=== PATIENT | female | born 1970 | race Caucasian/White ===

== ENCOUNTER 2017-09-30 09:54 | Emergency (ER) | payer OTHER ==
--- OUTSIDE RECORDS SUMMARY | 2017-09-30 10:20 | XMS REPORT ---
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 Granulocyte % 55.5 % 38-83 Lymphocyte % 34.7 % 25-47 Monocyte % 8.4 % 1-9 Eosinophil % 0.9 % 0-6 Basophil % 0.5 % 0-2 Nucleated Red Blood Cells % 0.1 Protein Electrophoresis 04/05/2016 Total Protein(Pep) 7.3 g/dL 6.3 - 7.9 Albumin 3.6 g/dL 3.4-4.7 Alpha-1 Globulin 0.3 g/dL 0.1-0.3 Alpha-2 Globulin 1.1 g/dL 0.6-1.0 Beta Globulin 0.9 g/dL 0.7-1.2 Gamma Globulin 1.4 g/dL 0.6-1.6 Albumin/Globulin Ratio 0.96 M [place] 1.2 g/dL Impression See Comment 36 Comp Metabolic Panel 04/05/2016 Sodium 135 mmol/L 133-145 Potassium 3.8 mmol/L 3.5-5.0 Chloride 101 mmol/L 101-111 Co2 Carbon Dioxide 29 mmol/L 22-32 Anion Gap 5 mmol/L 2-11 Glucose 92 mg/dL 70-100 Blood Urea Nitrogen 15 mg/dL 6-24 Creatinine 0.82 mg/dL 0.51-0.95 BUN/Creatinine Ratio 18.3 8-20 Calcium 9.5 mg/dL 8.6-10.3 Total Protein 7.3 g/dL 6.4-8.9 Albumin 4.3 g/dL 3.2-5.2 Globulin 3.0 g/dL 2-4 Albumin/Globulin Ratio 1.4 1-3 Total Bilirubin 0.50 mg/dL 0.2-1.0 Alkaline Phosphatase 36 U/L 34-104 Alt 9 U/L 7-52 Ast 13 U/L 13-39 Egfr Non- 75.4 >60 Egfr 97.0 >60 37 Immunoglobulins Serum Quant 04/05/2016 Immunoglobulin G 1390 mg/dL 767 - 1590 38 Immunoglobulin M 29 mg/dL 37 - 286 Immunoglobulin A 33 mg/dL 61 - 356 [place]/Lambda Free Light Chains 04/05/2016 [place] Free [place] Chain 2.84 mg/dL 39 Ser Lambda Free Light Chain 0.8210 mg/dL 40 [place]/Lambda Free [place] Chain 3.46 41 Laboratory test 02/13/2016 Clotest SEE RESULT BELOW 42 finding Laboratory test 02/13/2016 Surgical Interface SEE RESULT BELOW 43 finding Order CBC Auto Diff 01/10/2016 White Blood Count 5.3 10^3/uL 3.5-10.8 Red Blood Count 4.42 10^6/uL 4.0-5.4 Hemoglobin 13.6 g/dL 12.0-16.0 Hematocrit 41 % 35-47 Mean Corpuscular Volume 93 fL 80-97 Mean Corpuscular Hemoglobin 31 pg 27-31 Mean Corpuscular HGB Conc 33 g/dL 31-36 Red Cell Distribution Width 13 % 10.5-15 Platelet Count 307 10^3/uL 150-450 Mean Platelet Volume 8 um3 7.4-10.4 Abs Neutrophils 2.4 10^3/uL 1.5-7.7 Abs Lymphocytes 2.3 10^3/uL 1.0-4.8 Abs Monocytes 0.5 10^3/uL 0-0.8 Abs Eosinophils 0.1 10^3/uL 0-0.6 Abs Basophils 0 10^3/uL 0-0.2 Abs Nucleated RBC 0 10^3/uL Granulocyte % 46.1 % 38-83 Lymphocyte % 43.2 % 25-47 Monocyte % 8.8 % 1-9 Eosinophil % 1.5 % 0-6 Basophil % 0.4 % 0-2 Nucleated Red Blood Cells % 0 [place]/Lambda Free [place] Chains 01/10/2016 [place] Free [place] Chain 3.04 mg/dL 44 Ser Lambda Free Light Chain 0.6710 mg/dL 45 [place]/Lambda Free Light Chain 4.53 46 Protein Electrophoresis 01/10/2016 Total Protein(Pep) 6.8 g/dL 6.3 - 7.9 Albumin 3.6 g/dL 3.4-4.7 Alpha-1 Globulin 0.2 g/dL 0.1-0.3 Alpha-2 Globulin 0.9 g/dL 0.6-1.0 Beta Globulin 0.7 g/dL 0.7-1.2 Gamma Globulin 1.5 g/dL 0.6-1.6 Albumin/Globulin Ratio 1.11 M [place] 1.3 g/dL Impression See Comment 47 Laboratory test finding 12/12/2015 Vitamin B-12 398 pg/mL 230-1050 Ebv Acute Infection 12/12/2015 Ebv Ab Vca, IgM <36.0 U/mL 0.0-35.9 48 , 49 Antibodies Profile Ebv Early Antigen Ab, IgG <9.0 U/mL 0.0-8.9 48, 50 Ebv Ab Vca, IgG 77.1 U/mL High 0.0-17.9 48, 51 Ebv Nuclear Antigen Ab, IgG 506.0 U/mL High 0.0-17.9 48, 52 Interpretation: See Comment: 48, 53 Lead Standard Profile, Blood 12/12/2015 Lead, Blood (Adult) 2 g/dL 0- 19 48, 54 Protoporphyrin (Fep) 22 g/dL 0-100 48 Zinc Protoporphyrin 24 g/dL 0-100 48, 55 CBC Electronic (Fma) 12/12/2015 WBC 8.8 3.6-9.6 RBC 4.61 3.90-5.70 Hemoglobin (Fma/CMC/CTX) 14.5 g/dL 12.1 - 17.2 Hematocrit (Fma/CMC/CTX) 43.3 % 36.1 - 50.3 Platelets 260 10^3/ul 150-400 Lymph% 15.2 % Low 17.0-48.0 Mixed% 2.3 Neutrophils % 82.5 Mean Corpuscular Vol 94 82.2-97.4 Mean Corpuscular Hemoglobin 31.6 27.6-33.3 Mean Corpuscular Hemo Concen 33.6 32.0-36.0 RDW 13.2 11.6-13.7 Mean Platelet Volume 7.3 5.5-11.0 Laboratory test finding 12/12/2015 Monospot (Fma/Centrex) negative Laboratory test finding 12/11/2015 Quickstrep negative Negative Throat - Beta Strep Fma negative@48hrs Comp Metabolic Panel 10/10/2015 Sodium 134 mmol/L 133-145 Potassium 3.9 mmol/L 3.5-5.0 Chloride 104 mmol/L 101-111 Co2 Carbon Dioxide 26 mmol/L 22-32 Anion Gap 4 mmol/L 2-11 Glucose 90 mg/dL 70-100 Blood Urea Nitrogen 12 mg/dL 6-24 Creatinine 0.89 mg/dL 0.51-0.95 BUN/Creatinine Ratio 13.5 8-20 Calcium 9.0 mg/dL 8.6-10.3 Total Protein 7.0 g/dL 6.4-8.9 Albumin 4.1 g/dL 3.2-5.2 Globulin 2.9 g/dL 2-4 Albumin/Globulin Ratio 1.4 1-3 Total Bilirubin 0.50 mg/dL 0.2-1.0 Alkaline Phosphatase 31 U/L Low 34-104 Alt 8 U/L 7-52 Ast 12 U/L Low 13-39 Egfr Non- 68.6 >60 Egfr 88.2 >60 56 Protein Electrophoresis 10/10/2015 Total Protein(Pep) 7.0 g/dL 6.3 - 7.9 Albumin 3.4 g/dL 3.4-4.7 Alpha-1 Globulin 0.2 g/dL 0.1-0.3 Alpha-2 Globulin 1.0 g/dL 0.6-1.0 Beta Globulin 0.8 g/dL 0.7-1.2 Gamma Globulin 1.6 g/dL 0.6-1.6 Albumin/Globulin Ratio 0.94 M Morris 1.3 g/dL Impression See Comment 57 Laboratory test finding 10/10/2015 C Reactive Protein < 1.00 mg/L &lt ; 5.00 58 LDH 100 U/L Low 140-271 CBC Auto Diff 10/10/2015 White Blood Count 5.1 10^3/uL 3.5-10.8 Red Blood Count 4.49 10^6/uL 4.0-5.4 Hemoglobin 14.3 g/dL 12.0-16.0 Hematocrit 42 % 35-47 Mean Corpuscular Volume 94 fL 80-97 Mean Corpuscular Hemoglobin 32 pg High 27-31 Mean Corpuscular HGB Conc 34 g/dL 31-36 Red Cell Distribution Width 14 % 10.5-15 Platelet Count 216 10^3/uL 150-450 Mean Platelet Volume 8 um3 7.4-10.4 Abs Neutrophils 2.6 10^3/uL 1.5-7.7 Abs Lymphocytes 1.8 10^3/uL 1.0-4.8 Abs Monocytes 0.4 10^3/uL 0-0.8 Abs Eosinophils 0.2 10^3/uL 0-0.6 Abs Basophils 0 10^3/uL 0-0.2 Abs Nucleated RBC 0 10^3/uL Granulocyte % 51.9 % 38-83 Lymphocyte % 35.3 % 25-47 Monocyte % 8.9 % 1-9 Eosinophil % 3.0 % 0-6 Basophil % 0.9 % 0-2 Nucleated Red Blood Cells % 0 [place]/Lambda Free Light Chains 10/10/2015 [place] Free [place] Chain 2.44 mg/dL 59 Ser [place] Free Light Chain 1.39 mg/dL 60 [place]/Lambda Free Light Chain 1.76 61 Laboratory test finding 10/10/2015 Erythrocyte Sed Rate 10 mm/Hr 0-14 Urinalysis Profile 09/22/2015 Urine Color Colorless Urine Appearance Clear Urine Specific [place] 1.002 Low 1.010-1.030 Urine pH 6.0 5-9 Urine Urobilinogen Negative Negative Urine Ketones Negative Negative Urine Protein Negative Negative Urine Leukocytes Negative Negative Urine Blood Negative Negative Urine Nitrite Negative Negative Urine Bilirubin Negative Negative Urine Glucose Negative Negative Laboratory test finding 09/22/2015 Urine Random Total < 6 mg/dL Protein CBC Auto Diff 09/15/2015 White Blood Count 6.9 10^3/uL 4.8-10.8 Red Blood Count 4.09 10^6/uL 4.0-5.4 Hemoglobin 12.8 g/dL 12.0-16.0 Hematocrit 38 % 35-47 Mean Corpuscular Volume 93 fL 80-97 Mean Corpuscular Hemoglobin 31 pg 27-31 Mean Corpuscular HGB Conc 34 g/dL 31-36 Red Cell Distribution Width 14 % 10.5-15 Platelet Count 215 10^3/uL 150-450 Mean Platelet Volume 9 um3 7.4-10.4 Abs Neutrophils 3.7 10^3/uL 1.5-7.7 Abs Lymphocytes 2.4 10^3/uL 1.0-4.8 Abs Monocytes 0.7 10^3/uL 0-0.8 Abs Eosinophils 0.1 10^3/uL 0-0.6 Abs Basophils 0 10^3/uL 0-0.2 Abs Nucleated RBC 0 10^3/uL Granulocyte % 54.2 % 38-83 Lymphocyte % 34.8 % 25-47 Monocyte % 9.5 % High 1-9 Eosinophil % 0.9 % 0-6 Basophil % 0.6 % 0-2 Nucleated Red Blood Cells % 0.1 Comp Metabolic Panel 09/15/2015 Sodium 133 mmol/L 133-145 Potassium 3.7 mmol/L 3.5-5.0 Chloride 102 mmol/L 101-111 Co2 Carbon Dioxide 26 mmol/L 22-32 Anion Gap 5 mmol/L 2-11 Glucose 88 mg/dL 70-100 Blood Urea Nitrogen 13 mg/dL 6-24 Creatinine 0.79 mg/dL 0.51-0.95 BUN/Creatinine Ratio 16.5 8-20 Calcium 9.4 mg/dL 8.6-10.3 Total Protein 7.0 g/dL 6.4-8.9 Albumin 4.1 g/dL 3.2-5.2 Globulin 2.9 g/dL 2-4 Albumin/Globulin Ratio 1.4 1-3 Total Bilirubin 0.40 mg/dL 0.2-1.0 Alkaline Phosphatase 30 U/L Low 34-104 Alt 9 U/L 7-52 Ast 11 U/L Low 13-39 Egfr Non- 78.7 >60 Egfr 101.2 >60 62 Protein Electrophoresis 09/15/2015 Total Protein(Pep) 7.0 g/dL 6.3 - 7.9 Albumin 3.5 g/dL 3.4-4.7 Alpha-1 Globulin 0.3 g/dL 0.1-0.3 Alpha-2 Globulin 0.9 g/dL 0.6-1.0 Beta Globulin 0.8 g/dL 0.7-1.2 Gamma Globulin 1.6 g/dL 0.6-1.6 Albumin/Globulin Ratio 1.01 M Morris 1.3 g/dL Impression See Comment 63 CCP Abs Igg/Iga 08/04/2015 CCP Antibodies <1 units 0-19 64, 65 IgG/IgA Laboratory test 08/03/2015 TSH 2.39 mIU/L 0.50-6.00 finding Free T4 0.89 ng/dL 0.75-1.54 Complete Blood Count 08/03/2015 WBC 5.2 x10^3/UL 3.6-9.6 RBC 4.08 x10^6/UL 3.90-5.70 HGB 12.8 g/dL 12.1-17.2 HCT 37 % 36-50 MCV 92.0 fL 82.2-97.4 MCH 31.4 pg 27.6-33.3 MCHC 34.2 g/dL 33.0-35.5 RDW 13.5 % 11.6-13.7 PLT 250 x10^3/UL 150-400 MPV 6.9 fL Low 7.4-10.4 Gran # 2.4 x10^3/UL 1.5-7.2 Lymph# 2.5 x10^3/UL 0.7-4.9 [place]# 0.3 x10^3/UL 0.1-0.9 Gran % 44.7 % 42.2-75.2 Lymph % 49.1 % 20.5-51.1 [place]% 6.2 % 1.7-9.3 Hepatic 08/03/2015 Total Protein 6.6 g/dL 6.4-8.3 Albumin 4.1 g/dL 3.8-5.5 Globulin 2.5 g/dL 2.0-4.8 A/G Ratio 1.6 CALC 0.6-2.3 Alk. Phosphatase 34 U/L 30-110 Alt (SGPT) 8 U/L 7-35 Ast (Sgot) 10 U/L 5-34 Total Bilirubin 0.3 mg/dL 0.2-1.3 Direct Bilirubn 0.1 mg/dL 0.0-0.6 Indirect Bilirubin 0.20 mg/dL 0.10-1.00 Laboratory test finding 08/03/2015 Vitamin B-12 226 pg/mL Low 230-1050 Folate Level 8.44 ng/mL 3.00-16.00 Basic Metabolic Profile 06/29/2015 Sodium 135 mEq/L 134-149 Potassium 4.0 mEq/L 3.6-5.5 Chloride 102 mEq/L 94-112 Carbon Dioxide 24 mEq/L 21-32 Glucose 100 mg/dL 70-105 BUN 10 mg/dL 6-26 Creatinine 0.8 mg/dL 0.6-1.4 BUN/Creat Ratio 12.5 CALC 8.0-36.0 Calcium 9.4 mg/dL 8.6-10.2 GFR Non- >60 ml/min/1.73m^ >=60 GFR >60 ml/min/1.73m^ >=60 Laboratory test finding 06/29/2015 Magnesium, Serum 1.9 mEq/L 1.2-2.1 Protein Electrophoresis 03/13/2015 Total Protein(Pep) 6.9 g/dL 6.3 - 7.9 Albumin 3.4 g/dL 3.4-4.7 Alpha-1 Globulin 0.3 g/dL 0.1-0.3 Alpha-2 Globulin 1.0 g/dL 0.6-1.0 Beta Globulin 0.8 g/dL 0.7-1.2 Gamma Globulin 1.4 g/dL 0.6-1.6 Albumin/Globulin Ratio 0.94 M [place] 1.2 g/dL Impression See Comment 66 CBC Auto Diff 03/13/2015 White Blood Count 6.4 10^3/uL 4.8-10.8 Red Blood Count 4.56 10^6/uL 4.0-5.4 Hemoglobin 14.7 g/dL 12.0-16.0 Hematocrit 43 % 35-47 Mean Corpuscular Volume 94 fL 80-97 Mean Corpuscular Hemoglobin 32 pg High 27-31 Mean Corpuscular HGB Conc 35 g/dL 31-36 Red Cell Distribution Width 13 % 10.5-15 Platelet Count 219 10^3/uL 150-450 Mean Platelet Volume 9 um3 7.4-10.4 Abs Neutrophils 3.0 10^3/uL 1.5-7.7 Abs Lymphocytes 2.3 10^3/uL 1.0-4.8 Abs Monocytes 0.7 10^3/uL 0-0.8 Abs Eosinophils 0.3 10^3/uL 0-0.6 Abs Basophils 0 10^3/uL 0-0.2 Abs Nucleated RBC 0 10^3/uL Granulocyte % 47.6 % 38-83 Lymphocyte % 36.0 % 25-47 Monocyte % 11.2 % High 1-9 Eosinophil % 4.5 % 0-6 Basophil % 0.7 % 0-2 Nucleated Red Blood Cells % 0.1 Comp Metabolic Panel 03/13/2015 Sodium 131 mmol/L Low 133-145 Potassium 4.0 mmol/L 3.5-5.0 Chloride 102 mmol/L 101-111 Co2 Carbon Dioxide 28 mmol/L 22-32 Anion Gap 1 mmol/L Low 2-11 Glucose 108 mg/dL High 70-100 Blood Urea Nitrogen 11 mg/dL 6-24 Creatinine 0.86 mg/dL 0.51-0.95 BUN/Creatinine Ratio 12.8 8-20 Calcium 9.1 mg/dL 8.6-10.3 Total Protein 6.6 g/dL 6.4-8.9 Albumin 4.0 g/dL 3.2-5.2 Globulin 2.6 g/dL 2-4 Albumin/Globulin Ratio 1.5 1-3 Total Bilirubin 0.40 mg/dL 0.2-1.0 Alkaline Phosphatase 34 U/L 34-104 Alt 10 U/L 7-52 Ast 13 U/L 13-39 Egfr Non- 71.7 >60 Egfr 92.2 >60 67 Immunoglobulins Serum Quant 03/13/2015 Immunoglobulin G 1360 mg/dL 767 - 1590 68 Immunoglobulin M 24 mg/dL 37 - 286 Immunoglobulin A 32 mg/dL 61 - 356 Lyme Western Blot 02/16/2015 Lyme Disease IgG Ab WB Negative Negative Lyme Disease IgG Bands Present No bands detecte <SEE NOTE> kDa 69 Lyme Disease IgM Ab WB Negative Negative Lyme Disease IgM Bands Present No bands detecte <SEE NOTE> kDa 70 Lyme Disease Interpretation See Comment 71 Laboratory test finding 02/16/2015 Quickstrep NEG Negative Throat - Beta Strep Fma neg@48hrs [place] Hep-2 02/01/2015 [place] Pattern Negative Negative 72 [place] Reviewed By MD Miladis Moore 73 Laboratory test 02/01/2015 Babesiosis Evaluation <1:64 titer <1:64 74 finding E.Chaffeensis AB 02/01/2015 Ehrlichia chaffeensis <1:64 (Igg,M) Ab IgG Ehrlichia chaffeensis Ab IgM <1:20 Ehrlichia chaffeensis Interp See Comment 75 [place] Panel--LD (CMC) 02/01/2015 Anti Double Stranded Dna Negative Negative Rheumatoid Factor <15 IU/mL <15 76 [place] (Anti-Nuclear AB) Screen Reflexed to FA Negative U1 SHOE LACER IgG Autoabs 0.3 U 77 Hla B27 Ag 02/01/2015 Hla B27 Negative 78 Hla B27 Interp See Comment 79 Sjogren's Antibodies 02/01/2015 SS-A/Ro Antibody <0.2 U 80 SS-B/La Antibody <0.2 U 81 Laboratory test finding 02/01/2015 Cyclic Citrullinated Pept <15.6 U 82 IgG Laboratory test finding 02/01/2015 CRP High Sensitivity 0.59 mg/L 83 CBC Auto Diff 02/01/2015 White Blood Count 8.2 10^3/uL 4.8-10.8 Red Blood Count 4.52 10^6/uL 4.0-5.4 Hemoglobin 14.7 g/dL 12.0-16.0 Hematocrit 43 % 35-47 Mean Corpuscular Volume 95 fL 80-97 Mean Corpuscular Hemoglobin 33 pg High 27-31 Mean Corpuscular HGB Conc 35 g/dL 31-36 Red Cell Distribution Width 14 % 10.5-15 Platelet Count 235 10^3/uL 150-450 Mean Platelet Volume 9 um3 7.4-10.4 Abs Neutrophils 4.7 10^3/uL 1.5-7.7 Abs Lymphocytes 2.5 10^3/uL 1.0-4.8 Abs Monocytes 0.6 10^3/uL 0-0.8 Abs Eosinophils 0.3 10^3/uL 0-0.6 Abs Basophils 0.1 10^3/uL 0-0.2 Abs Nucleated RBC 0 10^3/uL Granulocyte % 57.8 % 38-83 Lymphocyte % 30.3 % 25-47 Monocyte % 7.9 % 1-9 Eosinophil % 3.1 % 0-6 Basophil % 0.9 % 0-2 Nucleated Red Blood Cells % 0 Laboratory test finding 02/01/2015 Erythrocyte Sed Rate 10 mm/Hr 0-14 Lyme Disease Serology Negative Negative 84 Reference Lab Test See Comment 85 CBC Auto Diff 12/13/2014 White Blood Count 6.8 10^3/uL 4.8-10.8 Red Blood Count 4.58 10^6/uL 4.0-5.4 Hemoglobin 15.0 g/dL 12.0-16.0 Hematocrit 44 % 35-47 Mean Corpuscular Volume 96 fL 80-97 Mean Corpuscular Hemoglobin 33 pg High 27-31 Mean Corpuscular HGB Conc 34 g/dL 31-36 Red Cell Distribution Width 13 % 10.5-15 Platelet Count 229 10^3/uL 150-450 Mean Platelet Volume 9 um3 7.4-10.4 Abs Neutrophils 3.3 10^3/uL 1.5-7.7 Abs Lymphocytes 2.6 10^3/uL 1.0-4.8 Abs Monocytes 0.6 10^3/uL 0-0.8 Abs Eosinophils 0.3 10^3/uL 0-0.6 Abs Basophils 0.1 10^3/uL 0-0.2 Abs Nucleated RBC 0 10^3/uL Granulocyte % 48.0 % 38-83 Lymphocyte % 37.6 % 25-47 Monocyte % 9.4 % High 1-9 Eosinophil % 4.2 % 0-6 Basophil % 0.8 % 0-2 Nucleated Red Blood Cells % 0 Comp Metabolic Panel 12/13/2014 Sodium 135 mmol/L 133-145 Potassium 3.6 mmol/L 3.5-5.0 Chloride 104 mmol/L 101-111 Co2 Carbon Dioxide 27 mmol/L 22-32 Anion Gap 4 mmol/L 2-11 Glucose 89 mg/dL 70-100 Blood Urea Nitrogen 10 mg/dL 6-24 Creatinine 0.77 mg/dL 0.51-0.95 BUN/Creatinine Ratio 13.0 8-20 Calcium 9.1 mg/dL 8.6-10.3 Total Protein 6.9 g/dL 6.4-8.9 Albumin 4.2 g/dL 3.2-5.2 Globulin 2.7 g/dL 2-4 Albumin/Globulin Ratio 1.6 1-3 Total Bilirubin 0.60 mg/dL 0.2-1.0 Alkaline Phosphatase 36 U/L 34-104 Alt 11 U/L 7-52 Ast 11 U/L Low 13-39 Egfr Non- 81.4 >60 Egfr 104.7 >60 86 Immunoglobulins Serum Quant 12/13/2014 Immunoglobulin G 1380 mg/dL 767 - 1590 87 Immunoglobulin M 26 mg/dL 37 - 286 Immunoglobulin A 34 mg/dL 61 - 356 [place]/Lambda Free Light Chains 12/13/2014 [place] Free Light Chain 1.25 mg/dL 88 Ser Lambda Free Light Chain 1.14 mg/dL 89 [place]/Lambda Free Light Chain 1.10 90 Protein Electrophoresis 12/13/2014 Total Protein(Pep) 7.0 g/dL 6.3 - 7.9 Albumin 3.5 g/dL 3.4-4.7 Alpha-1 Globulin 0.2 g/dL 0.1-0.3 Alpha-2 Globulin 1.0 g/dL 0.6-1.0 Beta Globulin 0.8 g/dL 0.7-1.2 Gamma Globulin 1.5 g/dL 0.6-1.6 Albumin/Globulin Ratio 1.01 M [place] 1.2 g/dL Impression See Comment 91 Thyroid Autoantibodies 10/17/2014 Thyroid Peroxidase 8.74 IU/mL <9 92 , 93 Profile Antibodies Thyroglobulin Tumor 10/17/2014 Thyroglobulin <1.8 IU/mL <4.0 92 Marker Antibody Thyroglobulin Tumor Marker 14 ng/mL 92, 94 Thyroglobulin Interpretation See Comment 92, 95 Laboratory test finding 10/17/2014 Vitamin D25 39 30-100 TSH 1.55 mIU/L 0.50-6.00 Ua - Non Micro (a) 10/17/2014 Appearance clear Color yellow Glucose, Urine (Fma/CMC/CTX) neg Bilirubin neg Ketones trace SP Grav 1.020 Blood neg PH 7.0 Protein neg Urobil 0.2 Nitrite neg Leukocytes (a/[facility]/Centrex) neg Comprehensive Metabolic Prof 10/10/2014 Sodium 137 mEq/L 134-149 Potassium 4.2 mEq/L 3.6-5.5 Chloride 103 mEq/L 94-112 Carbon Dioxide 27 mEq/L 21-32 Glucose 103 mg/dL 70-105 BUN 12 mg/dL 6-26 Creatinine 0.9 mg/dL 0.6-1.4 BUN/Creat Ratio 13.3 CALC 8.0-36.0 Calcium 9.6 mg/dL 8.6-10.2 Total Protein 7.2 g/dL 6.4-8.3 Albumin 4.2 g/dL 3.8-5.5 Globulin 3.0 g/dL 2.0-4.8 A/G Ratio 1.4 CALC 0.6-2.3 Alk. Phosphatase 36 U/L 30-110 Alt (SGPT) 15 U/L 7-35 Ast (Sgot) 16 U/L 5-34 Total Bilirubin 0.6 mg/dL 0.2-1.3 Lipid Profile 10/10/2014 Cholesterol 247 mg/dL High 120-200 Triglycerides 123 mg/dL 30-200 HDL Cholesterol 55 mg/dL 30-85 LDL (Calculated) 167 CALC High 0-129 VLDL Cholesterol 25 mg/dL 0-50 HDL Risk Factor 4.5 CALC High 0.0-4.4 Complete Blood Count 10/10/2014 WBC 6.8 x10^3/UL 3.6-9.6 RBC 4.60 x10^6/UL 3.90-5.70 HGB 15.3 g/dL 12.1-17.2 HCT 45 % 36-50 MCV 97.0 fL 82.2-97.4 MCH 33.2 pg 27.6-33.3 MCHC 34.0 g/dL 33.0-35.5 RDW 11.9 % 11.6-13.7 PLT 268 x10^3/UL 150-400 MPV 7.5 fL 7.4-10.4 Gran # 4.2 x10^3/UL 1.5-7.2 Lymph# 2.4 x10^3/UL 0.7-4.9 [place]# 0.2 x10^3/UL 0.1-0.9 Gran % 60.3 % 42.2-75.2 Lymph % 35.7 % 20.5-51.1 [place]% 4.0 % 1.7-9.3 Urinalysis Profile 10/02/2014 Urine Color Yellow Urine Appearance Clear Urine Specific [place] 1.010 1.010-1.030 Urine pH 6.0 5-9 Urine Urobilinogen Negative Negative Urine Ketones Negative Negative Urine Protein Negative Negative Urine Leukocytes Negative Negative Urine Blood Negative Negative Urine Nitrite Negative Negative Urine Bilirubin Negative Negative Urine Glucose Negative Negative CBC Auto Diff 09/27/2014 White Blood Count 8.2 10^3/uL 4.8-10.8 Red Blood Count 4.70 10^6/uL 4.0-5.4 Hemoglobin 15.4 g/dL 12.0-16.0 Hematocrit 46 % 35-47 Mean Corpuscular Volume 97 fL 80-97 Mean Corpuscular Hemoglobin 33 pg High 27-31 Mean Corpuscular HGB Conc 34 g/dL 31-36 Red Cell Distribution Width 13 % 10.5-15 Platelet Count 277 10^3/uL 150-450 Mean Platelet Volume 8 um3 7.4-10.4 Abs Neutrophils 4.9 10^3/uL 1.5-7.7 Abs Lymphocytes 2.4 10^3/uL 1.0-4.8 Abs Monocytes 0.6 10^3/uL 0-0.8 Abs Eosinophils 0.3 10^3/uL 0-0.6 Abs Basophils 0.1 10^3/uL 0-0.2 Abs Nucleated RBC 0 10^3/uL Granulocyte % 59.3 % 38-83 Lymphocyte % 29.2 % 25-47 Monocyte % 7.6 % 1-9 Eosinophil % 3.3 % 0-6 Basophil % 0.6 % 0-2 Nucleated Red Blood Cells % 0 Comp Metabolic Panel 09/27/2014 Sodium 135 mmol/L 133-145 Potassium 3.6 mmol/L 3.5-5.0 Chloride 103 mmol/L 101-111 Co2 Carbon Dioxide 26 mmol/L 22-32 Anion Gap 6 mmol/L 2-11 Glucose 90 mg/dL 70-100 Blood Urea Nitrogen 8 mg/dL 6-24 Creatinine 0.81 mg/dL 0.51-0.95 BUN/Creatinine Ratio 9.9 8-20 Calcium 9.1 mg/dL 8.6-10.3 Total Protein 7.4 g/dL 6.4-8.9 Albumin 4.4 g/dL 3.2-5.2 Globulin 3.0 g/dL 2-4 Albumin/Globulin Ratio 1.5 1-3 Total Bilirubin 0.40 mg/dL 0.2-1.0 Alkaline Phosphatase 38 U/L 34-104 Alt 12 U/L 7-52 Ast 13 U/L 13-39 Egfr Non- 76.8 >60 Egfr 98.8 >60 96 Laboratory test finding 09/27/2014 Beta 2 Microglobulin 2.00 g/mL 97 Immunoglobulins Serum 09/27/2014 Immunoglobulin G 1380 mg/dL 767 - 1590 98 Quant Immunoglobulin M 34 mg/dL 37 - 286 Immunoglobulin A 34 mg/dL 61 - 356 Protein Electrophoresis 09/27/2014 Total Protein(Pep) 7.5 g/dL 6.3 - 7.9 Albumin 4.0 g/dL 3.4-4.7 Alpha-1 Globulin 0.2 g/dL 0.1-0.3 Alpha-2 Globulin 0.9 g/dL 0.6-1.0 Beta Globulin 0.8 g/dL 0.7-1.2 Gamma Globulin 1.5 g/dL 0.6-1.6 Albumin/Globulin Ratio 1.16 M [place] 1.3 g/dL Impression See Comment 99 Immunofixation See Comment 100 1 REFERENCE VALUE 0.3300-1.94 2 REFERENCE VALUE 0.5700-2.63 3 REFERENCE VALUE 0.2600-1.65 Test Performed by: [place] [address] 4 M-spike in gamma fraction. Size of monoclonal protein not changed significantly since 02/19/2017. Test Performed by: [place] [address] 5 Because ethnic data is not always readily available, this report includes an eGFR for both -Americans and non- Americans. The National Kidney Disease Education Program (NKDEP) does not endorse the use of the MDRD equation for patients that are not between the ages of 18 and 70, are , have extremes of body size, muscle mass, or nutritional status, or are non- or non-. According to the National Kidney Foundation, irrespective of diagnosis, the stage of the disease is based on the level of kidney function: Stage Description GFR(mL/min/1.73 m(2)) 1 Kidney damage with normal or decreased GFR 90 2 Kidney damage with mild decrease in GFR 60-89 3 Moderate decrease in GFR 30-59 4 Severe decrease in GFR 15-29 5 Kidney failure <15 (or dialysis) 6 REFERENCE VALUE 0.3300-1.94 7 REFERENCE VALUE 0.5700-2.63 8 REFERENCE VALUE 0.2600-1.65 Test Performed by: [address] [id number] 9 Because ethnic data is not always readily available, this report includes an eGFR for both -Americans and non- Americans. The National Kidney Disease Education Program (NKDEP) does not endorse the use of the MDRD equation for patients that are not between the ages of 18 and 70, are , have extremes of body size, muscle mass, or nutritional status, or are non- or non-. According to the [employer], irrespective of diagnosis, the stage of the disease is based on the level of kidney function: Stage Description GFR(mL/min/1.73 m(2)) 1 Kidney damage with normal or decreased GFR 90 2 Kidney damage with mild decrease in GFR 60-89 3 Moderate decrease in GFR 30-59 4 Severe decrease in GFR 15-29 5 Kidney failure <15 (or dialysis) 10 M-spike in gamma fraction. Size of monoclonal protein not changed significantly since 11/26/2016. Test Performed by: [address] [address] 11 M-spike in gamma fraction. Size of monoclonal protein not changed significantly since 07/10/2016. Test Performed by: [address] [id number] [employer]ician: Isidro Eli II, M.D., Ph.D. 12 Because ethnic data is not always readily available, this report includes an eGFR for both -Americans and non- Americans. The National Kidney Disease Education Program (NKDEP) does not endorse the use of the MDRD equation for patients that are not between the ages of 18 and 70, are , have extremes of body size, muscle mass, or nutritional status, or are non- or non-. According to the National [employer], irrespective of diagnosis, the stage of the disease is based on the level of kidney function: Stage Description GFR(mL/min/1.73 m(2)) 1 Kidney damage with normal or decreased GFR 90 2 Kidney damage with mild decrease in GFR 60-89 3 Moderate decrease in GFR 30-59 4 Severe decrease in GFR 15-29 5 Kidney failure <15 (or dialysis) 13 REFERENCE VALUE 0.3300-1.94 14 REFERENCE VALUE 0.5700-2.63 15 REFERENCE VALUE 0.2600-1.65 Test Performed by: [place] [address] [employer]ician: Isidro Eli II, M.D., Ph.D. 16 Because ethnic data is not always readily available, this report includes an eGFR for both -Americans and non- Americans. The National Kidney Disease Education Program (NKDEP) does not endorse the use of the MDRD equation for patients that are not between the ages of 18 and 70, are , have extremes of body size, muscle mass, or nutritional status, or are non- or non-. According to the National [employer], irrespective of diagnosis, the stage of the disease is based on the level of kidney function: Stage Description GFR(mL/min/1.73 m(2)) 1 Kidney damage with normal or decreased GFR 90 2 Kidney damage with mild decrease in GFR 60-89 3 Moderate decrease in GFR 30-59 4 Severe decrease in GFR 15-29 5 Kidney failure <15 (or dialysis) 17 REFERENCE VALUE 0.3300-1.94 18 REFERENCE VALUE 0.5700-2.63 19 REFERENCE VALUE 0.2600-1.65 Test Performed by: [place] [address] [employer] Technician: Isidro Eli II, M.D., Ph.D. 20 M-spike in gamma fraction. Size of monoclonal protein not changed significantly since 04/05/2016 Test Performed by: [place] [address] [employer]ician: Isidro Eli II, M.D., Ph.D. 21 Presumptive Positive Presumptive positive results are unconfirmed. 22 Presumptive Positive Presumptive positive results are unconfirmed. 23 The urine specimen was tested at the listed cutoffs: Drug class test level (ng/mL) Amphetamines 500 Barbiturates 200 Benzodiazepine metabolites 200 Cocaine metabolites 150 Cannabinoids 50 Opiates 300 Pcp 25 Specimen was received without chain of custody. Results should be used for medical purposes only. 24 Reference Range and Interpretation: TnI (ng/mL) Interpretation Less Than 0.03 ng/mL Not supportive of diagnosis of SD 0.03 - 0.50 ng/mL Indeterminate: suggest serial studies if clinically indicated. Greater than 0.5 ng/mL Consistent with diagnosis of SD 25 Because ethnic data is not always readily available, this report includes an eGFR for both -Americans and non- Americans. The National Kidney Disease Education Program (NKDEP) does not endorse the use of the MDRD equation for patients that are not between the ages of 18 and 70, are , have extremes of body size, muscle mass, or nutritional status, or are non- or non-. According to the National Kidney Foundation, irrespective of diagnosis, the stage of the disease is based on the level of kidney function: Stage Description GFR(mL/min/1.73 m(2)) 1 Kidney damage with normal or decreased GFR 90 2 Kidney damage with mild decrease in GFR 60-89 3 Moderate decrease in GFR 30-59 4 Severe decrease in GFR 15-29 5 Kidney failure <15 (or dialysis) 26 Desirable <150 Borderline high 150-199 High 200-499 Very High >500 27 Desirable <200 Borderline high 200-239 High >239 28 Low <40 Desirable: 40-60 High: >60 29 Desirable: <100 mg/dL Near Optimal: 100-129 mg/dL Borderline High: 130-159 mg/dL High: 160-189 mg/dL Very High: >189 mg/dL 30 [facility] Severe Sepsis and Septic Shock Management Bundle Measure requires all lactic acids initially measuring >2.0 mmol/L be repeated. 31 Reference Range and Interpretation: TnI (ng/mL) Interpretation Less Than 0.03 ng/mL Not supportive of diagnosis of SD 0.03 - 0.50 ng/mL Indeterminate: suggest serial studies if clinically indicated. Greater than 0.5 ng/mL Consistent with diagnosis of SD 32 [facility] Severe Sepsis and Septic Shock Management Bundle Measure requires all lactic acids initially measuring >2.0 mmol/L be repeated. 33 Please note: The following may produce a false positive D Dimer test: - Rheumatoid factor greater than 60 IU/ml - Plasma hemoglobin greater than 0.05 gm/dl - Bilirubin greater than 50 mg/dl - Lipids greater than 1000 mg/dl - FDP greater than 20 ug/ml 34 Because ethnic data is not always readily available, this report includes an eGFR for both -Americans and non- Americans. The National Kidney Disease Education Program (NKDEP) does not endorse the use of the MDRD equation for patients that are not between the ages of 18 and 70, are , have extremes of body size, muscle mass, or nutritional status, or are non- or non-. According to the National Kidney Foundation, irrespective of diagnosis, the stage of the disease is based on the level of kidney function: Stage Description GFR(mL/min/1.73 m(2)) 1 Kidney damage with normal or decreased GFR 90 2 Kidney damage with mild decrease in GFR 60-89 3 Moderate decrease in GFR 30-59 4 Severe decrease in GFR 15-29 5 Kidney failure <15 (or dialysis) 35 Reference Range and Interpretation: TnI (ng/mL) Interpretation Less Than 0.03 ng/mL Not supportive of diagnosis of SD 0.03 - 0.50 ng/mL Indeterminate: suggest serial studies if clinically indicated. Greater than 0.5 ng/mL Consistent with diagnosis of SD 36 M-spike in gamma fraction. Size of monoclonal protein not changed significantly since 01/10/2016 Test Performed by: [address] [address] [employer] Technician: Isidro Eli II, M.D., Ph.D. 37 Because ethnic data is not always readily available, this report includes an eGFR for both -Americans and non- Americans. The National Kidney Disease Education Program (NKDEP) does not endorse the use of the MDRD equation for patients that are not between the ages of 18 and 70, are , have extremes of body size, muscle mass, or nutritional status, or are non- or non-. According to the National Kidney Foundation, irrespective of diagnosis, the stage of the disease is based on the level of kidney function: Stage Description GFR(mL/min/1.73 m(2)) 1 Kidney damage with normal or decreased GFR 90 2 Kidney damage with mild decrease in GFR 60-89 3 Moderate decrease in GFR 30-59 4 Severe decrease in GFR 15-29 5 Kidney failure <15 (or dialysis) 38 Test Performed by: [address] [address] [employer] Technician: Isidro Eli II, M.D., Ph.D. 39 REFERENCE VALUE 0.3300-1.94 40 REFERENCE VALUE 0.5700-2.63 41 REFERENCE VALUE 0.2600-1.65 Test Performed by: [address] [address] [employer] Plant Technician: Isidro Eli II, M.D., Ph.D. 42 SEE RESULT BELOW Name: JOYCELYN DILLARD : [address]: Simba Alford MD Acct: [id number] Unit: [id number] AGE: 45 Location: OR Re02/13/16 SEX: F Status: REG SDC SPEC: [id number] HALIMA: 02/13/16-[address] [facility] [address]: Simba Alford MD REQ: [id number] RECD: 02/13/16-1286 STATUS: BOBBY HARDING DR: Merari Schulte MD _ SOURCE: GAS ANTRUM SPDESC: ORDERED: Clotest Procedure Result Reported Site Clotest Final 02/14/16- 738 ML Clotest Negative * ML - MAIN LAB (PSC1) . END OF REPORT * ML=Testing performed at Main Lab DEPARTMENT OF PATHOLOGY, [address] [place] [address] Danny Augustine M.D. Director [facility] # [id number] 43 SEE RESULT BELOW Name: JOYCELYN DILLARD : [address]: Simba Alford MD Acct: [id number] Unit: [id number] AGE: 45 Location: OR Re02/13/16 SEX: F Status: REG SDC SPEC: [id number] HALIMA: 02/13/16- SUBM DR: Simba Alford MD REQ: [id number] RECD: 02/14/16 STATUS: SHIRLENE HARDING DR: Linh Schulte MD _ ORDERED: LEVEL IV FINAL DIAGNOSIS Duodenum, third portion, biopsy: -- Benign small intestinal mucosa with no significant pathologic abnormalities. -- No evidence of villous blunting or increased intraepithelial lymphocytes. CLINICAL HISTORY EGD for abdominal pain, bouts of nausea and vomiting, 02/07 nausea - rotten all day, week before 3-4 days of. POST-OPERATIVE DIAGNOSIS EGD - larynx irritated, esophagus - 17-40 inlet patch R, all normal EGD, stomach - normal - x2 Duodenum - normal x 40 biopsy X 2. Conclusion/Plan: 1. Inlet patch, 2. Normal EGD, 3. Nausea and vomiting meds will add GROSS DESCRIPTION The specimen is received in formalin labeled, Biopsy Third Portion Duodenum, and consists of two argueta irregular soft tissue fragments averaging 0.4 x 0.2 x 0.2 cm, which are submitted entirely in one cassette. Signed (signature on file) Nery Moore MD 02/25 1227 END OF REPORT * ML=Testing performed at Main Lab DEPARTMENT OF PATHOLOGY, [address] [place] [address] Danny Augustine M.D. Director [facility] # [id number] 44 REFERENCE VALUE 0.3300-1.94 45 REFERENCE VALUE 0.5700-2.63 46 REFERENCE VALUE 0.2600-1.65 Test Performed by: [place] [address] Biomass Plant Technician: Isidro Eli II, M.D., Ph.D. 47 M-spike in gamma fraction. Size of monoclonal protein not changed significantly since 10/10/2015. Test Performed by: [place] [address] Biomass Plant Technician: Isidro Eli II, M.D., Ph.D. 48 RC:1,HS:9,TP:V,PP: ,CT: 1 sst 49 Negative <36.0 Equivocal 36.0 - 43.9 Positive >43.9 50 Negative < 9.0 Equivocal 9.0 - 10.9 Positive >10.9 51 Negative <18.0 Equivocal 18.0 - 21.9 Positive >21.9 52 Negative <18.0 Equivocal 18.0 - 21.9 Positive >21.9 53 EBV Interpretation Chart Interpretation EBV-IgM EA(D)-IgG VCA-IgG EBNA-IgG EBV Seronegative - - - - Early Phase + - - - Acute Primary + +or- + - Infection Convalescence/Past - +or- + + Infection Reactivated +or- + + + Infection + Antibody Present - Antibody Absent 54 Environmental Exposure: WHO Recommendation <20 Occupational Exposure: OSHA Lead Std 40 [place] 30 Detection Limit=1 55 [place]: 100 (1 month exposure) Environmental exposure 0 - 38 56 Because ethnic data is not always readily available, this report includes an eGFR for both -Americans and non- Americans. The National Kidney Disease Education Program (NKDEP) does not endorse the use of the MDRD equation for patients that are not between the ages of 18 and 70, are , have extremes of body size, muscle mass, or nutritional status, or are non- or non-. According to the National Kidney Foundation, irrespective of diagnosis, the stage of the disease is based on the level of kidney function: Stage Description GFR(mL/min/1.73 m(2)) 1 Kidney damage with normal or decreased GFR 90 2 Kidney damage with mild decrease in GFR 60-89 3 Moderate decrease in GFR 30-59 4 Severe decrease in GFR 15-29 5 Kidney failure <15 (or dialysis) 57 M-spike in gamma fraction. Size of monoclonal protein not changed significantly since 09/15/2015. Test Performed by: [place] [address] Biomass Plant Technician: Isidro Eli II, M.D., Ph.D. 58 Acute inflammation: >10.00 59 REFERENCE VALUE 0.3300-1.94 60 REFERENCE VALUE 0.5700-2.63 61 REFERENCE VALUE 0.2600-1.65 Test Performed by: [place] [address] Biomass Plant Technician: Isidro Eli II, M.D., Ph.D. 62 Because ethnic data is not always readily available, this report includes an eGFR for both -Americans and non- Americans. The National Kidney Disease Education Program (NKDEP) does not endorse the use of the MDRD equation for patients that are not between the ages of 18 and 70, are , have extremes of body size, muscle mass, or nutritional status, or are non- or non-. According to the National Kidney Foundation, irrespective of diagnosis, the stage of the disease is based on the level of kidney function: Stage Description GFR(mL/min/1.73 m(2)) 1 Kidney damage with normal or decreased GFR 90 2 Kidney damage with mild decrease in GFR 60-89 3 Moderate decrease in GFR 30-59 4 Severe decrease in GFR 15-29 5 Kidney failure <15 (or dialysis) 63 M-spike in gamma fraction. Size of monoclonal protein not changed significantly since 03/13/2015. Test Performed by: [place] [address] [employer]omass Plant Technician: Isidro Eli II, M.D., Ph.D. 64 1pour off serum 65 Negative <20 Weak positive 20 - 39 Moderate positive 40 - 59 Strong positive >59 66 M-spike in gamma fraction. Size of monoclonal protein not changed significantly since 12/13/2014. Test Performed by: [place] [address] Biomass Plant Technician: Isidro Eli II, M.D., Ph.D. 67 Because ethnic data is not always readily available, this report includes an eGFR for both -Americans and non- Americans. The National Kidney Disease Education Program (NKDEP) does not endorse the use of the MDRD equation for patients that are not between the ages of 18 and 70, are , have extremes of body size, muscle mass, or nutritional status, or are non- or non-. According to the National Kidney Foundation, irrespective of diagnosis, the stage of the disease is based on the level of kidney function: Stage Description GFR(mL/min/1.73 m(2)) 1 Kidney damage with normal or decreased GFR 90 2 Kidney damage with mild decrease in GFR 60-89 3 Moderate decrease in GFR 30-59 4 Severe decrease in GFR 15-29 5 Kidney failure <15 (or dialysis) 68 Test Performed by: [place] [address] Biomass Plant Technician: Isidro Eli II, M.D., Ph.D. 69 No bands detected 70 No bands detected 71 Specific serologic response to B. burgdorferi infection is not detected, but cannot rule out early infection during which low or undetectable antibody levels to B. burgdorferi may be present. If clinically indicated, a new serum specimen should be submitted in 7-14 days. ADDITIONAL INFORMATION CDC criteria require >=5 bands for IgG or >=2 bands for IgM for the Immunoblot to be considered positive. Bands (e.g.,p41) may be detected in patients without Lyme disease, and patterns not meeting the CDC criteria should be interpreted with caution. Immunoblot should be ordered only on specimens that are positive or equivocal by a FDA-licensed Lyme disease antibody screening test (e.g., EIA). Test Performed by: [place] [address] Biomass Plant Technician: Isidro Eli II, M.D., Ph.D. 72 A number of healthy individuals have positive antinuclear antibody (RODRIGUE) screen results, many of which are likely to be clinical false-positives; the Fluorescent Antibody test is a second-order test which has shown to have a negative discernible RODRIGUE pattern. 73 Miladis Moore 74 ADDITIONAL INFORMATION Analyte Specific Reagent: This test was developed and its performance characteristics determined by [facility]. It has not been cleared or approved by the U.S. Food and Drug Administration. Test Performed by: [place] [address] Biomass Plant Technician: Isidro Eli II, M.D., Ph.D. 75 ANTIBODY NOT DETECTED REFERENCE RANGE: IgG <1:64 IgM <1:20 Ehrlichia chaffeensis has been identified as the causative agent of Human Monocytic Ehrlichiosis (HME). Infected individuals produce specific antibodies to E. chaffeensis that can be detected by an immunofluorescent antibody (IFA) test. Single IgG IFA titers of 1:64 or greater indicate exposure to E. chaffeensis. A four-fold rise in IgG titers between acute and convalescent samples and/or the presence of IgM antibody against E. chaffeensis suggest recent or current infection. This test was developed and its performance characteristics have been determined by [facility]. It has not been cleared or approved by the U.S. Food and Drug Administration. The FDA has determined that such clearance or approval is not necessary. Performance characteristics refer to the analytical performance of the test. Test Performed by: [facility], [address] [address] [place] [address] 76 Test Performed by: [place] [address] Biomass Plant Technician: Isidro Eli II, M.D., Ph.D. 77 REFERENCE VALUE <1.0 (Negative) Test Performed by: [place] [address] Biomass Plant Technician: Isidro Eli II, M.D., Ph.D. 78 REFERENCE VALUE Not Applicable 79 RESULT: HLA-B27 antigen was not detected. ADDITIONAL INFORMATION Method: Flow Cytometry Performing Laboratory CLIA# [id number] Test Performed by: [address] [address] Biomass Plant Technician: Isidro Eli II, M.D., Ph.D. 80 REFERENCE VALUE <1.0 (Negative) 81 REFERENCE VALUE <1.0 (Negative) Test Performed by: [place] [address] Biomass Plant Technician: Isidro Eli II, M.D., Ph.D. 82 REFERENCE VALUE <20.0 (Negative) Test Performed by: [place] [address] Biomass Plant Technician: Isidro Eli II, M.D., Ph.D. 83 Low risk: <1.00 Average risk: 1.00-3.00 High risk: >3.00 84 Serologic response to B. burgdorferi infection is not detected, but cannot rule out early infection during which low or undetectable antibody levels to B. burgdorferi may be present. If clinically indicated, a new serum specimen should be submitted in 7-14 days. Test Performed by: [place] [address] Biomass Plant Technician: Isidro Eli II, M.D., Ph.D. 85 Test Result Flag Unit RefValue Bartonella PCR, B Specimen Source BLOOD Bartonella PCR Negative REFERENCE VALUE Not Applicable ADDITIONAL INFORMATION Laboratory developed test. Test Performed by: [place] [address] Biomass Plant Technician: Isidro Eli II, M.D., Ph.D. 86 Because ethnic data is not always readily available, this report includes an eGFR for both -Americans and non- Americans. The National Kidney Disease Education Program (NKDEP) does not endorse the use of the MDRD equation for patients that are not between the ages of 18 and 70, are , have extremes of body size, muscle mass, or nutritional status, or are non- or non-. According to the National Kidney Foundation, irrespective of diagnosis, the stage of the disease is based on the level of kidney function: Stage Description GFR(mL/min/1.73 m(2)) 1 Kidney damage with normal or decreased GFR 90 2 Kidney damage with mild decrease in GFR 60-89 3 Moderate decrease in GFR 30-59 4 Severe decrease in GFR 15-29 5 Kidney failure <15 (or dialysis) 87 Test Performed by: [place] [address] Biomass Plant Technician: Isidro Eli II, M.D., Ph.D. 88 REFERENCE VALUE 0.3300-1.94 89 REFERENCE VALUE 0.5700-2.63 90 REFERENCE VALUE 0.2600-1.65 Test Performed by: [address] [address] Biomass Plant Technician: Isidro Eli II, M.D., Ph.D. 91 M-spike in gamma fraction. Size of monoclonal protein not changed significantly since 09/27/2014. Test Performed by: [address] [address] Biomass Plant Technician: Isidro Eli II, M.D., Ph.D. 92 1pour off from red top serum Refrigerated ~~1pour off from red top serum Refrigerated 93 1pour off from red top serum Refrigerated 94 REFERENCE VALUE Athyrotic <0.1 Intact Thyroid <=33 95 Thyroglobulin (Tg) levels must be interpreted in the context of TSH levels, serial Tg measurements and radioiodine ablation status. Tg levels of > or=10 ng/mL in athyrotic individuals on suppressive therapy indicate a significant (>25%) risk of clinically detectable recurrent papillary/follicular thyroid cancer. ADDITIONAL INFORMATION PLEASE NOTE: Thyroglobulin flagging is based on athyrotic reference values. The thyroglobulin and thyroglobulin antibody testing methods are immunoenzymatic assays manufactured by [employer] and performed on the [employer] DXI 800. Values obtained from different assay methods or kits may be different and cannot be used interchangeably. The results cannot be interpreted as absolute evidence for the presence or absence of malignant disease. Test Performed by: [facility] - [address] [address] Biomass Plant Technician: Gregory Easley M.D. 96 Because ethnic data is not always readily available, this report includes an eGFR for both -Americans and non- Americans. The National Kidney Disease Education Program (NKDEP) does not endorse the use of the MDRD equation for patients that are not between the ages of 18 and 70, are , have extremes of body size, muscle mass, or nutritional status, or are non- or non-. According to the National Kidney Foundation, irrespective of diagnosis, the stage of the disease is based on the level of kidney function: Stage Description GFR(mL/min/1.73 m(2)) 1 Kidney damage with normal or decreased GFR 90 2 Kidney damage with mild decrease in GFR 60-89 3 Moderate decrease in GFR 30-59 4 Severe decrease in GFR 15-29 5 Kidney failure <15 (or dialysis) 97 REFERENCE VALUE 1.21 - 2.70 Test Performed by: [place] [address] Biomass Plant Technician: Gregory Easley M.D. 98 Test Performed by: [place] [address] Biomass Plant Technician: Gregory Easley M.D. 99 M-spike in gamma fraction. See Immunofixation. Test Performed by: [place] [address] Biomass Plant Technician: Gregory Easley M.D. 100 Monoclonal IgG kappa. C/W MGUS, early myeloma, amyloidosis, etc. Suggest 24-hr urine Monoclonal Protein Studies. Suggest Immunoglobulin Free Light Chains, Serum Test Performed by: [place] [address] Biomass Plant Technician: Gregory Easley M.D. Procedures Date CPT Code Description Status Comment 12/01/2015 67211 Injection Subcutaneous Or Intramuscular Completed 10/31/2015 12627 Injection Subcutaneous Or Intramuscular Completed 09/29/2015 40648 Injection Subcutaneous Or Intramuscular Completed 08/31/2015 74612 Injection Subcutaneous Or Intramuscular Completed 10/17/2014 14930 CPHL SHQ Completed 07/27/2014 Colonoscopy Completed 10/13/2012 Mammogram Completed normal. Encounters Type Date Location Provider CPT E/M Dx Office Visit 05/21/2017 3:20p Main Office Merari Schulte M.D. 69972 F43.22 C44.329 N92.6 Office Visit 04/18/2017 2:00p Main Office Merari Schulte M.D. 42782 Z11.1 Z23 Office Visit 04/09/2017 3:40p Main Office Merari Schulte M.D. 39372 E66.3 G89.4 M54.5 K59.09 F43.21 Office Visit 01/09/2017 3:40p [facility] Merari Schulte M.D. 40540 F43.21 R23.8 Z23 Office Visit 08/26/2016 5:00p Main Office Merari Schulte M.D. 61094 M62.838 F43.22 Office Visit 07/17/2016 3:40p Main Office Merari Schulte M.D. 75710 F43.22 M62.838 Q85.00 Office Visit 06/12/2016 11:00a Main Office Merari Schulte M.D. 18337 R07.89 Office Visit 01/15/2016 3:30p Main Office Merari Schulte M.D. 25618 R19.7 Office Visit 12/11/2015 6:30p Main Office Merari Schulte M.D. 23462 J31.2 K59.09 R78.71 D51.8 J01.80 Office Visit 08/31/2015 3:00p [facility] Merari Schulte M.D. 81560 R53.83 M62.838 E53.8 Office Visit 08/03/2015 3:00p [facility] Merari Schulte M.D. 75188 R53.83 C90.00 G43.009 Z23 Office Visit 06/29/2015 3:00p Main Office [place] [address] 338.4 728.85 300.00 203.01 784.0 Office Visit 02/24/2015 11:00a Main Office Merari Schulte M.D. 57099 338.4 728.85 300.00 Office Visit 02/20/2015 9:30a Main Office Merari Schulte M.D. 97775 V74.1 Office Visit 02/16/2015 9:20a [facility] Merari Schulte M.D. 91223 472.1 338.4 Office Visit 01/31/2015 3:20p [facility] Merari Schulte M.D. 39463 338.4 728.85 279.49 Office Visit 11/22/2014 8:00a Main Office Nery Willett, [facility] 48078 466.0 786.2 Office Visit 10/17/2014 6:50p Main Office Merari Schulte M.D. 59378 V70.0 244.9 268.9 724.2 Office Visit 09/16/2014 11:20a Main Office Merari Schulte M.D. 36496 724.2 726.5 737.30 237.70 203.01 Office Visit 08/30/2014 3:20p [facility] Merari Schulte M.D. 92551 784.0 203.00 530.81 276.8 Plan of Care 09/02/2017 - Merari Schulte M.D.D51.8 Other vitamin B12 deficiency anemiasNew Labs:CBC Electronic (Fma)B12 (Fma/CMC/Centrex)Folic Acid (Fma/CMC/ Centrex)Comments:b12 shot today 1000 mcg. and every month x 3.Follow up:next year for physical including pap smear.F43.22 Adjustment disorder with anxietyComments:continue with Cass. continue Valium.Its ok to take 3 valium a day on 2 days of the week. If it starts to get above that, we should think about something else.AllNew Medication:Cyanocobalamin 1000 mcg/MLComments:~B_~U_ Medication Management~b_~u_ Patient Understands medications she's taking? Yes No Are there Barriers to Adherence? Yes No Has the patient been asked about herbal supplements and therapies, and OTC meds? Yes No
--- NOTE | 2017-09-30 11:04 | RAD ---
HISTORY: Left-sided numbness COMPARISONS: October 03, 2016 TECHNIQUE: Multiple contiguous axial CT scans were obtained of the head without intravenous contrast. FINDINGS: Evaluation is somewhat limited by streak artifact from jewelry in the ears bilaterally. HEMORRHAGE/INFARCT: There is no hemorrhage or acute infarct. MASSES/SHIFT: There is no mass or shift. EXTRA-AXIAL SPACES: There are no extra-axial fluid collections. SULCI AND VENTRICLES: The sulci and ventricles are normal in size and position for the patient's stated age. CEREBRUM: There are no focal parenchymal abnormalities. BRAINSTEM: There are no focal parenchymal abnormalities. CEREBELLUM: There are no focal parenchymal abnormalities. VESSELS: The vessels are grossly normal. PARANASAL SINUSES: The paranasal sinuses are clear. ORBITS: The orbits are unremarkable. BONES AND SOFT TISSUE: No bone or soft tissue abnormalities are noted. OTHER: None IMPRESSION: NO ACUTE INTRACRANIAL PATHOLOGY.
[2017-09-30 11:20] LABS: Hematocrit 41 % (35-47); Hemoglobin 14.3 g/dl (12.0-16.0); Mean Corpuscular HGB Conc 35 g/dl (31-36); Mean Corpuscular Hemoglobin 31 pg (27-31); Mean Corpuscular Volume 89 fL (80-97); Mean Platelet Volume 8 um3 (7.4-10.4); Red Blood Count 4.63 10^6/ul (4.0-5.4); Red Cell Distribution Width 13 % (10.5-15); White Blood Count 5.4 10^3/ul (3.5-10.8)
[2017-09-30 11:35] LABS: Albumin 4.2 g/dL (3.2-5.2); BUN/Creatinine Ratio 11.2 (8-20); Calcium 9.6 mg/dL (8.6-10.3); EGFR African American 87.4 (>60); Globulin 2.9 g/dL (2-4); Total Bilirubin 0.5 mg/dL (0.2-1.0); Total Protein 7.1 g/dL (6.4-8.9)
[2017-09-30 14:16] LABS: Urine Bacteria Absent (Absent); Urine Bilirubin Negative (Negative); Urine Glucose Negative (Negative); Urine Nitrite Negative (Negative)
[2017-09-30 15:40] LABS: TSH (Thyroid Stimulating Horm) 3.3 mcIU/mL (0.34-5.60)
--- NOTE | 2017-09-30 16:04 | RAD ---
HISTORY: Left-sided numbness and tingling COMPARISONS: CTA head and neck dated July 04, [address] the brain dated September 30, 2017. TECHNIQUE: The following sequences were obtained of the head: Sagittal T1-weighted images, axial T2-weighted images, axial FLAIR images, axial susceptibility weighted images, axial T1-weighted images. Additionally, axial diffusion-weighted images were obtained with calculated apparent diffusion coefficients.. FINDINGS: HEMORRHAGE/INFARCT: There is no hemorrhage or acute infarct. MASSES/SHIFT: There is no mass or shift. EXTRA-AXIAL SPACES/MENINGES: There are no extra-axial fluid collections. SULCI AND VENTRICLES: The sulci and ventricles are normal in size and position for the patient's stated age. CEREBRUM: There are no focal parenchymal abnormalities. BRAINSTEM: There are no focal parenchymal abnormalities. CEREBELLUM: There are no focal parenchymal abnormalities. The cerebellar tonsils are normal in size and position. SELLA: The sella is normal. PINEAL: The pineal region is clear. CP ANGLE/TEMPORAL BONES: The labyrinthine structures are grossly normal. VESSELS: Normal flow-voids are noted within the visualized vertebral vasculature. DIFFUSION ABNORMALITIES: There are no diffusion abnormalities. PARANASAL SINUSES/MASTOIDS: The paranasal sinuses are clear. ORBITS: The orbits are unremarkable. BONES AND SOFT TISSUE: No bone or soft tissue abnormalities are noted. IMPRESSION: NORMAL MRI OF THE BRAIN.
[2017-09-30 18:15] VITALS: BP 118/73
--- NOTE | 2017-09-30 19:45 | ED ---
Lianne Walker Julia, scribed for Mika Gordon MD on 09/30/17 at 1118 . Neurological HPI - HPI Summary HPI Summary: This patient is a 47 year old female presenting to [facility] with a chief complaint of left sided numbness and tingling described as pins and needles since . Patient reports that the symptoms began in the LUE, LLE, and whole left hand and then yesterday the same sensation began at her left lower face. Patient is right hand dominant. Patient additionally reports having loose diarrhea for the past 3 weeks. Patient denies tingling in the forehead, difficulty with movement, urinary symptoms, and fecal incontinence. She takes liquid tablet medical marijuana. She had an EEG in the past. - History of Current Complaint Chief Complaint: EDNeurologicalDeficit Stated Complaint: STROKE-LIKE SYMPTOMS Time Seen by Provider: 09/30/17 11:08 Hx Obtained From: Patient Hx Last Menstrual Period: ABLATION Onset/Duration: Started days ago - two days, Still Present Timing: Constant Neurological Deficit Location: Facial, LUE, LLE Pain Intensity: 0 Pain Scale Used: 0-10 Numeric Character: Numbness/Tingling Associated Signs and Symptoms: Positive: Diarrhea - for 3 weeks - Allergy/Home Medications Allergies/Adverse Reactions: Allergies Allergy/AdvReac Type Severity Reaction Status Date / Time Latex Allergy Mild Rash Verified 09/03/17 09:32 Baclofen Allergy Hives Verified 09/03/17 09:32 Halothane Allergy See Comment Verified 09/03/17 09:32 Erythromycin AdvReac Intermediate GI Upset Verified 09/03/17 09:32 Fluconazole [From Diflucan] AdvReac Intermediate Agitation Verified 09/03/17 09: 32 Haloperidol [From Haldol] AdvReac Intermediate See Comment Verified 09/03/17 09: 32 Sulfa Drugs AdvReac Intermediate GI Upset Verified 09/03/17 09:32 CI Pigment Blue 63 AdvReac Mild Anxiety Verified 09/03/17 09:32 [From Cymbalta] Duloxetine [From Cymbalta] AdvReac Mild Anxiety Verified 09/03/17 09:32 Tizanidine [From Zanaflex] AdvReac Vomiting Verified 09/03/17 09:32 Home Medications: Home Medications Medical Marijuana 1 cap PO QPM 12/19/17 [History Confirmed 09/30/17] oxyCODONE SR TAB(*) [Oxycontin 20 mg (*)] 20 mg PO BID 09/30/17 [History Confirmed 09/30/17] PMH/Surg Hx/FS Hx/Imm Hx Endocrine/Hematology History: Reports: Hx Bone Marrow Disease - MULTIPLE MYELOMA Denies: Hx Diabetes Cardiovascular History: Denies: Hx Hypertension, Hx Pacemaker/ICD GI History: Reports: Other GI Disorders - PROBLEMS WITH NAUSEA AND VOMITING History: Reports: Other Problems/Disorders - FREQ UTI Denies: Hx Renal Disease Musculoskeletal History: Reports: Hx Back Problems - thoracic area, Other Musculoskeletal History - DDD NECK AND BACK Sensory History: Reports: Hx Contacts or Glasses - CONTACT Denies: Hx Hearing Aid Opthamlomology History: Reports: Hx Contacts or Glasses - CONTACT Neurological History: Reports: Hx Migraine, Other Neuro Impairments/Disorders - NEURO FIBROMYTOSIS; low vitamin b12 Psychiatric History: Reports: Hx Anxiety, Hx Depression Denies: Hx Panic Disorder - Cancer History Cancer Type, Location and Year: multiple myleloma Hx Chemotherapy: No - Surgical History Surgery Procedure, Year, and Place: TONSILLECTOMY, [facility]. BILATERAL TUBAL LIGATION,. REVERSAL OF TUBAL LIGATION,. FIBROID REMOVED FROM UTERUS,. 2010 REMOVAL OF SCAR TISSUE FROM [place] TUBE AND UTERINE ABLATION, [facility] Hx Anesthesia Reactions: Yes - TONSILLECTOMY STATES HEART STOPPED Infectious Disease History: No Infectious Disease History: Denies: Traveled Outside the [place] in Last 30 Days - Family History Known Family History: Negative: Cardiac Disease - Social History Alcohol Use: None Hx Substance Use: Yes Substance Use Type: Reports: Marijuana Substance Use Comment - Amount & Last Used: medicinal Hx Tobacco Use: Yes Smoking Status (MU): Former Smoker Type: Cigarettes Amount Used/How Often: vapor cigs Length of Time of Smoking/Using Tobacco: 1 YR Have You Smoked in the Last Year: Yes - "VAPOR" CIGARETTES Review of Systems Negative: Fever Positive: Diarrhea - past 3 weeks, Other - negative - fecal incontinence Genitourinary: Negative Neurological: Other - tingling LLE, LUE, L face Positive: Numbness - LLE, LUE, L face All Other Systems Reviewed And Are Negative: Yes Physical Exam - Summary Physical Exam Summary: Appearance: The patient is well-nourished in no acute distress and in no acute pain. Skin: The skin is warm and dry and skin color reflects adequate perfusion. HEENT: The head is normocephalic and atraumatic. The pupils are equal and reactive. The conjunctivae are clear and without drainage. Nares are patent and without drainage. Mouth reveals moist mucous membranes and the throat is without erythema and exudate. The external ears are intact. The ear canals are patent and without drainage. The tympanic membranes are intact. Neck: the neck is supple with full range of motion and non-tender. There are no carotid bruits. There is no neck vein distension. Respiratory: Chest is non-tender. Lungs are clear to auscultation and breath sounds are symmetrical and equal. Cardiovascular: Heart is regular rate and rhythm. There is no murmur or rub auscultated. There is no peripheral edema and pulses are symmetrical and equal. Abdomen: The abdomen is soft and non-tender. There are normal bowel sounds heard in all four quadrants and there is no organomegaly palpated. Musculoskeletal: There is no back tenderness noted. Extremities are non-tender with full range of motion. There is good capillary refill. There is no peripheral edema or calf tenderness elicited. Neurological: Patient is alert and oriented to person, place and time. Patient has decreased sensation of the left lower face, LUE, and LLE. Patient has slight dysmetria in LUE. Psychiatric: The patient has an appropriate affect and does not exhibit any anxiety or depression. Triage Information Reviewed: Yes Vital Signs On Initial Exam: Initial Vitals Temp Pulse Resp BP Pulse Ox 98.0 F 77 18 139/81 94 09/30/17 10:03 09/30/17 10:03 09/30/17 10:03 09/30/17 10:03 09/30/17 10:03 Vital Signs Reviewed: Yes Neurological: Positive: Other - slight dysmetria in LUE. Negative: Sensory/ Motor Intact - Decreased sensation on LLE and LUE - [place] Coma Scale Coma Scale Total: 15 Diagnostics - Vital Signs Vital Signs Temp Pulse Resp BP Pulse Ox 09/30/17 11:06 95 09/30/17 11:03 63 15 121/77 97 09/30/17 11:00 62 19 96 09/30/17 10:30 73 17 111/78 95 09/30/17 10:27 74 15 94 09/30/17 10:25 112/76 09/30/17 10:03 98.0 F 77 18 139/81 94 - Laboratory Lab Results: Lab Results 09/30/17 09/30/17 09/30/17 Range/Units 11:07 11:07 11:07 WBC 5.4 (3.5-10.8) 10^3/ul RBC 4.63 (4.0-5.4) 10^6/ul Hgb 14.3 (12.0-16.0) g/dl Hct 41 (35-47) % MCV 89 (80-97) fL MCH 31 (27-31) pg MCHC 35 (31-36) g/dl RDW 13 (10.5-15) % Plt Count 240 (150-450) 10^3/ul MPV 8 (7.4-10.4) um3 Neut % (Auto) 60.5 (38-83) % Lymph % (Auto) 30.8 (25-47) % Hooker % (Auto) 7.3 (1-9) % Eos % (Auto) 0.6 (0-6) % Baso % (Auto) 0.8 (0-2) % Absolute Neuts (auto) 3.2 (1.5-7.7) 10^3/ul Absolute Lymphs (auto) 1.6 (1.0-4.8) 10^3/ul Absolute Monos (auto) 0.4 (0-0.8) 10^3/ul Absolute Eos (auto) 0 (0-0.6) 10^3/ul Absolute Basos (auto) 0 (0-0.2) 10^3/ul Absolute Nucleated RBC 0 10^3/ul Nucleated RBC % 0.1 INR (Anticoag Therapy) 0.93 (0.77-1.02) APTT 29.9 (26.0-36.3) seconds Sodium 138 (133-145) mmol/L Potassium 4.0 (3.5-5.0) mmol/L Chloride 106 (101-111) mmol/L Carbon Dioxide 27 (22-32) mmol/L Anion Gap 5 (2-11) mmol/L BUN 10 (6-24) mg/dL Creatinine 0.89 (0.51-0.95) mg/dL Est GFR ( Amer) 87.4 (>60) Est GFR (Non-Af Amer) 68.0 (>60) BUN/Creatinine Ratio 11.2 (8-20) Glucose 101 H (70-100) mg/dL Lactic Acid (0.5-2.0) mmol/L Calcium 9.6 (8.6-10.3) mg/dL Total Bilirubin 0.50 (0.2-1.0) mg/dL AST 11 L (13-39) U/L ALT 8 (7-52) U/L Alkaline Phosphatase 34 (34-104) U/L Troponin I 0.00 (<0.04) ng/mL Total Protein 7.1 (6.4-8.9) g/dL Albumin 4.2 (3.2-5.2) g/dL Globulin 2.9 (2-4) g/dL Albumin/Globulin Ratio 1.4 (1-3) TSH 3.30 (0.34-5.60) mcIU/mL Urine Color Urine Appearance Urine pH (5-9) Ur Specific [place] (1.010-1.030) Urine Protein (Negative) Urine Ketones (Negative) Urine Blood (Negative) Urine Nitrate (Negative) Urine Bilirubin (Negative) Urine Urobilinogen (Negative) Ur Leukocyte Esterase (Negative) Urine WBC (Auto) (Absent) Urine RBC (Auto) (Absent) Ur Squamous Epith Cells (Absent) Urine Bacteria (Absent) Urine Glucose (Negative) 09/30/17 09/30/17 Range/Units 11:07 13:45 WBC (3.5-10.8) 10^3/ul RBC (4.0-5.4) 10^6/ul Hgb (12.0-16.0) g/dl Hct (35-47) % MCV (80-97) fL MCH (27-31) pg MCHC (31-36) g/dl RDW (10.5-15) % Plt Count (150-450) 10^3/ul MPV (7.4-10.4) um3 Neut % (Auto) (38-83) % Lymph % (Auto) (25-47) % Hooker % (Auto) (1-9) % Eos % (Auto) (0-6) % Baso % (Auto) (0-2) % Absolute Neuts (auto) (1.5-7.7) 10^3/ul Absolute Lymphs (auto) (1.0-4.8) 10^3/ul Absolute Monos (auto) (0-0.8) 10^3/ul Absolute Eos (auto) (0-0.6) 10^3/ul Absolute Basos (auto) (0-0.2) 10^3/ul Absolute Nucleated RBC 10^3/ul Nucleated RBC % INR (Anticoag Therapy) (0.77-1.02) APTT (26.0-36.3) seconds Sodium (133-145) mmol/L Potassium (3.5-5.0) mmol/L Chloride (101-111) mmol/L Carbon Dioxide (22-32) mmol/L Anion Gap (2-11) mmol/L BUN (6-24) mg/dL Creatinine (0.51-0.95) mg/dL Est GFR ( Amer) (>60) Est GFR (Non-Af Amer) (>60) BUN/Creatinine Ratio (8-20) Glucose (70-100) mg/dL Lactic Acid 0.6 (0.5-2.0) mmol/L Calcium (8.6-10.3) mg/dL Total Bilirubin (0.2-1.0) mg/dL AST (13-39) U/L ALT (7-52) U/L Alkaline Phosphatase (34-104) U/L Troponin I (<0.04) ng/mL Total Protein (6.4-8.9) g/dL Albumin (3.2-5.2) g/dL Globulin (2-4) g/dL Albumin/Globulin Ratio (1-3) TSH (0.34-5.60) mcIU/mL Urine Color Straw Urine Appearance Clear Urine pH 5.0 (5-9) Ur Specific [place] 1.006 L (1.010-1.030) Urine Protein Negative (Negative) Urine Ketones Negative (Negative) Urine Blood 1+ H (Negative) Urine Nitrate Negative (Negative) Urine Bilirubin Negative (Negative) Urine Urobilinogen Negative (Negative) Ur Leukocyte Esterase Negative (Negative) Urine WBC (Auto) Absent (Absent) Urine RBC (Auto) Trace(0-2/hpf) (Absent) Ur Squamous Epith Cells Present H (Absent) Urine Bacteria Absent (Absent) Urine Glucose Negative (Negative) Result Diagrams: 09/30/17 11:07 09/30/17 11:07 Lab Statement: Any lab studies that have been ordered have been reviewed, and results considered in the medical decision making process. - Radiology Brain MRI Radiology Interpretation Completed By: Radiologist - NORMAL MRI OF THE BRAIN. ED physician has reviewed this report. - CT Head CT CT Interpretation Completed By: Radiologist - NO ACUTE INTRACRANIAL PATHOLOGY. ED physician has reviewed this report. - EKG 10:18 Cardiac Rate: NL EKG Rhythm: Sinus Rhythm - at [address] Segment: Non-Specific EKG Interpretation: An EKG reveals non-specific T wave changes along horizontal axis. Course/Dx - Course Course Of Treatment: Ms. Dillard presented with several days of left arm, leg and lower face tingling. Her W/U was negative including an MRI and although I don't know the etiology of her symptoms they do not seem to represent an urgent organic problem. I recommended close F/U. - Diagnoses Provider Diagnoses: Paresthesia of left arm and leg, Facial paresthesia - Physician Notifications Discussed Care Of Patient With: Negra Chun - I spoke with Dr. Chun, neurology, who recommends MRI. Time Discussed With Above Provider: 11:47 Discharge - Discharge Plan Condition: Stable Disposition: HOME Patient Education Materials: Paresthesia (ED) Referrals: Merari Schulte MD [Primary Care Provider] - As Soon As Possible Additional Instructions: Patient is instructed to follow up with Dr. Schulte, primary care, tomorrow. The documentation as recorded by the Lianne shaikh Julia accurately reflects the service I personally performed and the decisions made by , Mika Gordon MD.
== END 2017-09-30 18:10 | disposition home or self-care (01) ==
LOC: ED 09:54
DX: R20.2 Paresthesia of skin (principal); R19.7 Diarrhea, unspecified; Z85.79 Personal history of other malignant neoplasms of lymphoid, hematopoietic and related tissues; Z87.440 Personal history of urinary (tract) infections; G43.909 Migraine, unspecified, not intractable, without status migrainosus; F41.9 Anxiety disorder, unspecified; F32.9 Major depressive disorder, single episode, unspecified; Z88.2 Allergy status to sulfonamides; Z88.8 Allergy status to other drugs, medicaments and biological substances; Z88.1 Allergy status to other antibiotic agents; Z91.040 Latex allergy status; F12.90 Cannabis use, unspecified, uncomplicated; Z87.891 Personal history of nicotine dependence
CPT/HCPCS: 36415; 70450; 70551; 80053; 81003; 81015; 83605; 84443; 84484; 85025; 85610; 85730; 93005; 99282

== ENCOUNTER 2018-11-10 07:26 | Day surgery (SDC) | payer OTHER ==
--- NOTE | 2018-11-09 13:42 | HP ---
PREOPERATIVE HISTORY AND PHYSICAL: DATE OF SURGERY/ADMISSION: 11/10/18 [facility] DATE OF OFFICE VISIT/ENCOUNTER: 11/09/18 ATTENDING SURGEON: Lilliam Murray MD * (DICTATED BY GELY PULLIAM) PROCEDURE: Closed reduction and pinning, right small finger. HISTORY OF PRESENT ILLNESS: This is a 48-year-old female, who sustained injury to her right little finger at work on 11/05/18. 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 She was trying to go through a stuck door and her finger got caught. She had x-rays taken, which showed a mild displaced fracture of the distal phalanx at the DIP joint with about a 1 to 2 mm gap at the joint surface and 50% of the articular surface involving the fracture. She was splinted and referred to Dr. Murray for further evaluation and treatment considerations. The patient has multiple myeloma and chronic pain. She is followed at the pain clinic by Dr. Parisi and takes various medications to manage her discomfort. After evaluation by Dr. Murray and review of x-rays, she has consented to proceed with surgical intervention for her right small finger. PAST MEDICAL HISTORY: 1. Multiple myeloma. 2. Neurofibromatosis. 3. Chronic back pain. 4. Hypothyroidism. 5. Degenerative disk disease. 6. Hypermobility syndrome. PAST SURGICAL HISTORY: 1. Tonsillectomy. 2. Tubal ligation. 3. Reversal of tubal ligation. 4. Fibroid excision from uterus. 5. Uterine ablation. CURRENT MEDICATIONS: 1. Diazepam 5 mg 1 tab twice a day. 2. Hydrocodone/acetaminophen 10/325 one tab every 4 hours p.r.n. 3. Levothyroxine sodium 25 mcg daily. 4. Medical marijuana daily. 5. Nucynta ER 50 mg twice a day p.r.n. 6. Rizatriptan benzoate 10 mg 1 tab a day as needed for headaches. 7. Xtampza ER 13.5 mg 1 tab twice a day. 8. Zofran 4 mg every 6 hours as needed for nausea. ALLERGIES: LYRICA, SULFA ANTIBIOTICS, BACLOFEN, CYMBALTA, ERYTHROMYCIN, HALDOL , HALOTHANE, and LATEX. FAMILY MEDICAL HISTORY: Pancreatic cancer and liver cancer. 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 She is a former smoker. She quit in 2014. Prior to that, she smoked from age 13 anywhere from 1 pack per week to 2 packs per day. She does currently use a vaporizer with nicotine. She uses medical marijuana and denies alcohol use. REVIEW OF SYSTEMS: Negative for general, cephalic, cardiovascular, respiratory , GI, , other musculoskeletal, integumentary, endocrine, neurologic, and hematologic symptoms. Infectious Disease: Negative for MRSA, hepatitis C, HIV. PHYSICAL EXAMINATION GENERAL: Well-developed, well-nourished 48-year-old female, in no acute distress. VITAL SIGNS: Height 5 feet 5-1/2 inches, weight 200 pounds. Pulse rate 94, blood pressure 118/78. HEENT: Normocephalic, atraumatic. Pupils are equal, round, and reactive to light and accommodation. Extraocular movements are intact. Throat is clear. NECK: Supple. No palpable lymph nodes. PULMONARY: Lungs are clear to auscultation bilaterally. No wheezes, rales or rhonchi. CARDIOVASCULAR: Regular rate and rhythm. S1, S2. No murmurs, rubs or gallops. No edema. ABDOMEN: Positive bowel sounds. Soft, nontender. NEUROLOGICAL: Alert and oriented x3. Cranial nerves II through XII are intact. Sensation is intact to light touch. MUSCULOSKELETAL: On exam of her right little finger, there is some mild swelling and bruising. She cannot move her DIP joint actively; however, she can keep it in extended position. She has significant tenderness at the distal phalanx. Skin is intact. Neurovascular function is intact. IMAGING STUDIES: X-rays of the right small finger show a mildly displaced fracture of the distal phalanx at the DIP joint. IMPRESSION: Right small finger distal phalanx fracture, which is displaced. PLAN: The patient is scheduled to undergo closed reduction and pinning right small finger with Dr. Murray on 11/10/18. She will return to the office 10 days postop for followup and suture removal. She has pain meds as prescribed by Dr. Parisi that she will plan on using for postoperative pain management. GELY PULLIAM [id number]/[facility] #: [id number] [place]
[~2018-11-10 07:26] MED LIST: Buffered Lidocaine 1% SYRIN* 1 ML/SYRINGE INTRADERM ONE; Dexamethasone IV* 4 MG/ML 1 ML (4 MG) ONE; DiMENhydriNATE IV* 50 MG/ML VIAL IV PUSH PRN; Famotidine IV* 10 MG/ML 2 ML (20 mg) IV ONE; Famotidine IV* 10 MG/ML 2 ML (20 mg) ONE; HYDROmorphone INJ1* 1 MG/ML SYRINGE IV PRN; Lactated Ringers 1000 ML Bag* 1,000 ML IV SCH; Naloxone* 0.4 MG/ML 1 ML VIAL IV PRN; Ondansetron ODT TAB* 4 MG ONE; Ondansetron TAB* 4 MG PO ONE; PROCHLORPERAZINE INJ 5 MG/ML 2 ML VIAL IV PRN; fentaNYL* 50 MCG/ML 2 ML VIAL (100 MCG VIAL) IV PRN; oxyCODONE/Acetamin 5/325 MG* TAB PO PRN
[2018-11-10] MEDS ORDERED: ceFAZolin 2 GM PREMIX in ORs 2 GM/50 ML BAG IVPB ONE (07:37)
[2018-11-10] MEDS ORDERED: Dexamethasone TAB* 4 MG ONE (07:45)
[2018-11-10] MEDS: Dexamethasone TAB* 4 MG PO ONE ×2 (08:05→08:15)
[2018-11-10] MEDS ORDERED: Lidocaine 1% INJ* 10 MG/ML 30 ML SDV ONE (08:41)
[2018-11-10] MEDS ORDERED: fentaNYL* 50 MCG/ML 2 ML VIAL (100 MCG VIAL) ONE (09:17)
[2018-11-10] MEDS ORDERED: Midazolam* 1 MG/ML 5 ML VIAL (5 MG) ONE (09:17)
[2018-11-10] MEDS ORDERED: KETAMINE HCL* 50 MG/ML 10 ML VIAL ONE (09:17)
[2018-11-10] MEDS ORDERED: Propofol* 10 MG/ML 20 ML BTL ONE (10:01)
[2018-11-10] MEDS ORDERED: Ketorolac INJ* 30 MG/ML 1 ML VIAL ONE (10:01)
[2018-11-10 10:20] VITALS: BP 123/86
--- NOTE | 2018-11-10 20:05 | OP ---
DATE OF OPERATION: 11/10/18 [facility] DATE OF : 70 SURGEON: Lilliam Murray MD WORKERS' COMPENSATION COMMISSIONER: GELY Adams ANESTHESIA: Local MAC. PRE-OP DIAGNOSIS: Displaced fracture of the right small finger distal phalanx. POST-OP DIAGNOSIS: Displaced fracture of the right small finger distal phalanx. OPERATIVE PROCEDURE: Closed reduction and pinning, right small finger distal phalanx. ESTIMATED BLOOD LOSS: Zero. INDICATIONS FOR PROCEDURE: Joycelyn is a 48-year-old female who injured her right little finger at work, was slammed in a door. She has a displaced fracture of her distal phalanx. She presents for closed reduction and pinning. DESCRIPTION OF PROCEDURE: The patient was brought to the operating room and was given a sedation anesthetic and a digital block with 10 cc of 1% plain lidocaine applied to the right small finger. The hand and forearm were prepped and draped in the usual sterile fashion. The C-arm was used to assure that the fracture fragments were reduced, and a single dorsal 0.035-inch K-wire was placed into the middle phalanx just proximal to the dorsal distal phalanx fragment. The DIP joint was then extended, which perfectly reduced the fracture fragments and a single 0.035-inch K-wire was driven through the distal phalanx across the DIP joint and into the middle phalanx. The position of the K -wires and the fracture fragments were checked on the C-arm in the AP and lateral views and found to be anatomic. The pins were bent and cut and dressed with Xeroform, 4x4, Webril, and an AlumaFoam splint. The patient tolerated the procedure well, was brought to the recovery room in good condition. [id number]/[facility] #: [id number] [facility]
== END 2018-11-10 11:29 | disposition home or self-care (01) ==
LOC: OREAST 07:26
PROVIDERS: ATTEND Orthopaedic Surgery
DX: S62.636A Displaced fracture of distal phalanx of right little finger, initial encounter for closed fracture (principal); W23.0XXA Caught, crushed, jammed, or pinched between moving objects, initial encounter; Y92.89 Other specified places as the place of occurrence of the external cause; Y99.0 Civilian activity done for income or pay; C90.00 Multiple myeloma not having achieved remission; Q85.00 Neurofibromatosis, unspecified; E03.9 Hypothyroidism, unspecified; Z87.891 Personal history of nicotine dependence
CPT/HCPCS: 76000; A9270-GY; C1776; J0690; J1100; J1885; J2250; J2704; J3010; J8540

== ENCOUNTER 2019-04-19 13:47 | Day surgery (SDC) | payer OTHER ==
[2019-04-19 14:27] VITALS: BP 139/98
[2019-04-19] MEDS ORDERED: Lidocaine 1% w EPI 1:200,000* 30 ML VIAL ONE (15:23)
[2019-04-19] MEDS ORDERED: Sodium Bicarbonate 8.4%* 50 ML SYRINGE ONE (15:25)
[2019-04-19] MEDS ORDERED: Bupivacaine 0.25% SDV PF* 10 ML VIAL INJ ONE (16:21)
[2019-04-19] MEDS ORDERED: HYDROcodone/ACETAMIN 5-325 MG* 1 TAB ONE (17:12)
--- NOTE | 2019-04-19 21:06 | OP ---
DATE OF OPERATION: 04/19/19 - [facility] DATE OF : 70 SURGEON: Renato Monson MD. [employer]BESTOS CLOTH INSPECTOR: GELY Adams. ANESTHESIOLOGIST: None. ANESTHESIA: Local only with buffered 1% lidocaine with epinephrine. PRE-OP DIAGNOSES: 1. Right small finger extension contracture of the proximal interphalangeal joint. 2. Right small finger extensor tendon adhesions. POST-OP DIAGNOSES: 1. Right small finger extension contracture of the proximal interphalangeal joint. 2. Right small finger extensor tendon adhesions. OPERATIVE PROCEDURE: 1. Right small finger proximal interphalangeal joint extension contracture release with release of dorsal capsule and some of the collateral ligaments. 2. Extensive right small finger extensor tendon tenolysis. INDICATIONS: Joycelyn is 48 years old. She had a mallet finger that was treated with some pinning and extension splinting. She is left with about a 45 - to 60- degree lag at the DIP joint and immediately when the splint came out, she had an extension contracture that despite extensive physical therapy she was never able to overcome. We talked about the risk of contracture recurrence even with surgery of an incomplete correction and the need for extensive post- operative physical therapy to try to prevent these complications. She understands all that and she wishes to proceed. ESTIMATED BLOOD LOSS: 5 mL. COMPLICATIONS: None. FINDINGS: See above and below. DESCRIPTION OF PROCEDURE: Joycelyn was seen in the preoperative holding area. The correct site, side, and procedure were identified. We came back to the operating room where the arm was prepped and draped in the usual fashion. Time- out was performed. I injected the operative area with 1% buffered lidocaine with epinephrine. I began by making a dorsal C-shaped incision and raised a radially based flap off the dorsum of the finger. The incision went almost to the length of the proximal phalanx and proximal middle phalanges. I went ahead and sewed back the flap to the palmar skin with some 4-0 nylon suture. There was extensive adhesions between the skin and the extensor tendon over the PIP joint. These were all released. The adhesions went all the way around the sides of the joint , to the collateral ligaments as well. It was difficult to tell where the margin of the lateral band was due to the extensive scar tissue that had formed. This was all debrided back with a [place] blade and released. I opened up the interval between the lateral bands and the central slip. I used the [place] blade to perform a full tenolysis. The central slip was adherent to the bone as was the lateral bands. This was all released with the braver blade and the [place] levator. The lateral bands were tracked up over the dorsum of the middle phalanx preserving the attachment of the central slip, the triangular ligament was preserved. It took quite some time, but ultimately I was able to perform a full tenolysis and I had all the extensor tendons loose. After the tenolysis, I had her flex and she had about 45 degrees of flexion actively. I then went ahead and used my [place] blade to excise the dorsal capsule off the PIP joint. I performed a little bit of release of the origin of the collateral ligaments on both the radial and ulnar side. I then had her flex the finger down and I manipulated the fingers well. I felt some bands of scar tissue release and then she was able to make a full fist. I had her extend and she had full active extension as well. I had her make several fists. She had excellent motion, and at this point, everything was looking good, so we irrigated out the wound. Skin was closed with 4-0 nylon suture and a very light dressing was applied. Some additional Marcaine was infiltrated all around the base of the finger. The wounds were dressed, and she was taken to the recovery room in stable condition. [id number]/[facility] #: [id number] HALIMA
== END 2019-04-19 17:32 | disposition home or self-care (01) ==
LOC: OR 13:47
PROVIDERS: ATTEND Orthopaedic Surgery Hand Surgery
DX: M24.541 Contracture, right hand (principal); S62.636S Displaced fracture of distal phalanx of right little finger, sequela; E78.5 Hyperlipidemia, unspecified; M19.90 Unspecified osteoarthritis, unspecified site; F41.8 Other specified anxiety disorders; Z85.828 Personal history of other malignant neoplasm of skin; Z85.79 Personal history of other malignant neoplasms of lymphoid, hematopoietic and related tissues; W23.0XXS Caught, crushed, jammed, or pinched between moving objects, sequela; Y92.9 Unspecified place or not applicable
CPT/HCPCS: J2001; J3490